=== PATIENT | male | born 1970 | race African-American/Black ===

== ENCOUNTER 2017-11-10 10:43 | Emergency (ER) | payer MEDICAID ==
[~2017-11-10] VITALS: Ht 175.3 cm; Wt 95.0 kg
[2017-11-10] MEDS ORDERED: KETOROLAC 60MG/2ML VIAL IM ONE (11:15)
[2017-11-10 15:15] VITALS: BP 128/78
== END 2017-11-10 15:42 | disposition home or self-care (01) ==
LOC: ER 12:11
DX: M54.5 Low back pain (principal); I10 Essential (primary) hypertension; J45.909 Unspecified asthma, uncomplicated; Z89.021 Acquired absence of right finger(s); Z98.890 Other specified postprocedural states; V43.52XA Car driver injured in collision with other type car in traffic accident, initial encounter; Y93.89 Activity, other specified; Y92.89 Other specified places as the place of occurrence of the external cause
CPT/HCPCS: 72070; 72100; 72125; 72128; 96372; 99284; J1885